=== PATIENT | male | born 1970 | race Two or more races ===

== ENCOUNTER → 2025-02-07 | Outpatient (CLI) | payer BC, SELFPAY ==
[2025-02-07 12:05] LABS: Prostate Specific Antigen 1.43 ng/mL (0-4.00)
== END | disposition home or self-care (01) ==
PROVIDERS: PCP Student in an Organized Health Care Education/Training Program; Referring Provider Surgery; Visit Provider Surgery
DX: N40.1 Benign prostatic hyperplasia with lower urinary tract symptoms (principal)
CPT/HCPCS: 36415; 84153

== ENCOUNTER 2025-06-18 13:52 | Emergency (ER) | payer BC, SELFPAY ==
[2025-06-18 14:10] VITALS: BP 126/74; PULSE 84; RESP 16; TEMP 36.8; O2SAT 97
--- NOTE | 2025-06-18 14:40 | EDNOTE_ITS ---
ED Abdominal Pain RME/HPI General Chief Complaint: Abdominal Pain Stated complaint: ABD PAIN X 7 DAYS Time seen by provider: 06/18/25 14:03 Arrival date/time: 06/18/25 13:52 Source: patient and family Mode of arrival: ambulatory Limitations: no limitations RME / HPI RME / HPI narrative: Patient is a 54-year-old male is in the emergency department with concerns for suprapubic pain. Patient states that he has a history of enlarged prostate, hypertension was started on tamsulosin and finasteride however feels that he is not emptying his bladder, and has suprapubic pain. Denies fevers chills nausea vomiting chest pain upper abdominal pain melena hematochezia. Also endorses dysuria. Related Data Previous Rx's ?Medication ?Instructions ?Recorded aspirin 81 mg tablet,delayed 81 mg PO QDAY 30 days #30 tabs 09/07/23 release atorvastatin 80 mg tablet 80 mg PO HS 30 days #30 tabs 09/07/23 lisinopril 5 mg tablet 5 mg PO QDAY 30 days #30 tab s 09/07/23 metoprolol succinate 25 mg 25 mg PO QDAY 30 days #30 t abs 09/07/23 tablet,extended release 24 hr ticagrelor 90 mg tablet (Brilinta) 90 mg PO BID 30 day s #60 tabs 09/07/23 Allergies Allergy/AdvReac Type Severity Reaction Status Date / Time No Known Allergies Allergy Verified 06/18/25 13:55 ED Exam General Limitations: Present no limitations General appearance: Present alert and in no apparent distress Head Head exam: Present atraumatic and normocephalic Eye Eye exam: Present normal appearance, PERRL and EOMI ENT ENT exam: Present normal exam and normal oropharynx Neck Neck exam: Present normal inspection, full ROM and trachea midline Chest Chest inspection: Present normal inspection and symmetric chest wall rise Respiratory Respiratory exam: Absent respiratory distress Cardiovascular Cardiovascular exam: Present regular rate Abdominal Exam Abdominal exam: Present soft and tenderness (Mild suprapubic tenderness, no rebound or guarding); Absent distention Extremities Exam Extremities exam: Present normal inspection and full ROM Course Quality Measures none Orders Category Date Time Status Bladder Scan NEEDED Care 06/18/25 14:38 Completed CBC Stat Lab 06/18/25 14:52 Completed CMP [Comprehensive Metabolic Panel] Stat Lab 06/18/25 14:52 Completed Lipase Stat Lab 06/18/25 14:52 Completed UA, C/S IF [Urinalysis, C/S if Indicated] Stat Lab 06/18/25 15:00 Completed Acetaminophen Tab [Tylenol ES Tab] Med 06/18/25 14:42 Discontinued 500 mg PO X1 ONE Vital Signs Vital signs: Vital Signs Temperature 98.3 F 06/18/25 14:10 Pulse Rate 84 06/18/25 14:10 Respiratory Rate 16 06/18/25 14:10 Blood Pressure 126/74 06/18/25 14:10 Pulse Oximetry (%) 97 06/18/25 14:10 Oxygen Delivery Method Room Air 06/18/25 14:10 Abdominal Pain MDM MDM Narrative MDM Narrative:: Patient is a 54-year-old male is in emerged from with concerns for suprapubic pain. Vital signs and exam as listed. Concern for urinary retention, urinary tract infection. Ordered labs, bladder scan postvoid, offered medication for symptom relief. Labs without any acute hematologic or significant metabolic abnormality no evidence of renal dysfunction. Urinalysis without evidence of infection. P atient was able to empty his bladder. Advised patient to follow-up with his primary care doctor as well as to go to his appointment to see his urologist in the upcoming weeks. Patient is hemodynamically stable not in distress symptoms well-controlled will discharge home close return precautions follow-up with primary care doctor Patient data External records reviewed:: [facility] previous records Clinical information provided by:: patient and family Social determinants that could affect healthcare access:: none (Language, used to require seismic interpreter) Patient has the following chronic illnesses:: See MDM How is presenting disease/condition affected by chronic disease/condition?: exacerbated by Evaluation data The following diagnostics were reviewed and interpreted by me:: lab results and radiology exam(s) Lab and/or radiology exams considered but not ordered:: None Interpretation Summary: See MDM Medications / Prescriptions Medications or Prescriptions considered but not ordered:: None Medication administrations:: Medication Administration History Discontinued Medications Acetaminophen (Acetaminophen 500 Mg Tablet) 500 mg PO X1 ONE Stop: 06/18/25 14:43 Last Admin: 06/18/25 15:29 Dose: 500 mg Documented By: OA See above Consultations Consultation(s) initiated? (list below): No Diagnosis Differential diagnosis abdominal pain: other (see mdm) Most likely diagnosis given after review of the tests above:: See MDM Admission Indicated Admission indicated?: not indicated Admission Request Was there a request for admission?: No Disposition Plan Disposition Plan: Discharge Discharge Attestation Discharge Attestation: The patient and all family members were given an opportunity to ask questions and understood the discharge instructions. Discharge instructions specifically effects, indications for sooner follow up or return to the emergency department, and the expected course of current diagnosis. Patient condition: Stable Discharge Plan Plan Patient Disposition: HOME (Self Care) Prescriptions/Referrals Prescriptions/Med Rec: No Action aspirin 81 mg Tablet,Delayed Release (Dr/Ec) 81 mg PO QDAY 30 Days Qty: 30 2RF atorvastatin 80 mg tablet 80 mg PO HS 30 Days Qty: 30 2RF lisinopril 5 mg tablet 5 mg PO QDAY 30 Days Qty: 30 2RF metoprolol succinate 25 mg Tablet Extended Release 24 Hr 25 mg PO QDAY 30 Days Qty: 30 2RF Brilinta 90 mg Tablet 90 mg PO BID 30 Days Qty: 60 2RF Referrals: Jero Mccormick MD [Primary Care Provider] - In 1 week Problem List Clinical Impression: Bladder irritability Patient/Caregiver Discharge Instructions Education Materials: Anatomy of the Male Urinary Tract Additional Instructions: Por favor ir a [facility] bessie con [facility]ico [facility] cabecera y con [facility]. Regresar si tiene dificultades con orinar, fiebre u otro sintoma de preocupacion. Print Language: Wolof Stand Alone Forms: Samantha Award Info., Patient Portal Info Letter
[2025-06-18 15:09] LABS: Basophils # (Auto) 0.1 Thou/mm3 (0.0-0.2); Basophils % (Auto) 1 % (0-2.5); Eosinophils # (Auto) 0.1 Thou/mm3 (0.0-0.5); Eosinophils % (Auto) 1 % (0-10); Hematocrit 45.0 % (41.0-53.0); Hemoglobin 15.7 g/dL (13.5-16.0); Immature Granulocytes Auto 0.02 Thou/mm3 (0.00-0.00); Lymphocytes # (Auto) 2.0 Thou/mm3 (1.0-4.8); Lymphocytes % (Auto) 23 % (10-50); Mean Corpuscular HGB Conc 34.9 g/dl (31.0-37.0); Mean Corpuscular Hemoglobin 31.2 pg (25.0-35.0); Mean Corpuscular Volume 89 fL (80-100); Monocytes # (Auto) 0.6 Thou/mm3 (0.0-0.8); Monocytes % (Auto) 7 % (0-12); Neutrophils # (Auto) 6.1 Thou/mm3 (1.8-7.7); Neutrophils % (Auto) 70 % (37-80); Nucleated Red Blood Cell # 0.00 Thou/mm3 (0.00-0.00); Nucleated Red Blood Cell % 0 /100 WBC (0); Platelet Count 210 Thou/mm3 (140-440); RDW Standard Deviation 39.1 fL (35.1-43.9); Red Blood Count 5.04 Miln/mm3 (4.50-5.90); White Blood Count 8.7 Thou/mm3 (3.8-10.6)
[2025-06-18 15:23] LABS: Alanine Aminotransferase 26 U/L (10-49); Albumin, Serum 4.7 gm/dL (3.5-5.0); Albumin/Globulin Ratio 2.1 (1.2-2.2); Alkaline Phosphatase 85 U/L (46-116); Anion Gap 7 (7-16); Aspartate Amino Transferase 19 U/L (0-34); BUN/Creatinine Ratio 13 Ratio (12-20); Bilirubin,Total 0.6 mg/dL (0.3-1.2); Blood Urea Nitrogen 13 mg/dL (9-23); Calcium 10.1 mg/dL (8.3-10.6); Calcium (Corrected) 10.1 mg/dL (8.5-10.1); Carbon Dioxide 29.6 mMol/L (20.0-31.0); Chloride 104 mMol/L (98-107); Creatinine (Component) 1.0 mg/dL (0.6-1.3); Estimated Creatinine Clearance 88.9 mL/min (>60); Globulin 2.2 gm/dL (2.3-3.5); Glucose 151 mg/dL (74-106); Lipase 41 U/L (12-53); Osmolality,Calculated 284 (275-295); Potassium 4.8 mMol/L (3.4-5.1); Sodium 141 mMol/L (136-145); Total Protein 6.9 gm/dL (5.7-8.2); eGFR > 60 See Note
[2025-06-18] MEDS: ACETAMINOPHEN 500 MG TABLET PO (15:29)
[2025-06-18 15:42] LABS: Collection Type, Urine Clean Catch; Squamous Epithelial Cell,Urine 0 /hpf (0-5)
[2025-06-18 15:49] LABS: Bilirubin,Urine Negative (Negative); Blood,Urine Negative (Negative); Clarity,Urine Clear (Clear/Hazy); Color,Urine Yellow (Lt Yel-Yel); Culture Indicated,Urine Not Indicated; Glucose, Urine Negative (Negative); Ketones,Urine Negative (Negative); Leukocyte Esterase,Urine Negative (Negative); Nitrite,Urine Negative (Negative); PH,Urine 6.0 (5.0-7.0); Protein,Urine Negative (Neg - Trace); RBC,Urine 1 /hpf (0-3); Specific Gravity,Urine 1.029 (1.001-1.035); Urobilinogen,Urine Negative mg/dL (0.0-1.0); WBC,Urine 1 /hpf (0-5)
== END 2025-06-18 19:04 | disposition home or self-care (01) ==
PROVIDERS: Emergency Provider Emergency Medicine; PCP Family Medicine
DX: N32.89 Other specified disorders of bladder (principal); R10.2 Pelvic and perineal pain; N40.0 Benign prostatic hyperplasia without lower urinary tract symptoms; I10 Essential (primary) hypertension
CPT/HCPCS: 36415; 80053; 81001; 83690; 85025; 99283; A9270